=== PATIENT | female | born 1970 ===

== ENCOUNTER 2018-06-25 19:18 | Emergency (ER) | payer BC ==
[2018-06-25 19:22] VITALS: BMI 30.2
[2018-06-25 19:47] VITALS: RESP 18
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
[2018-06-25 21:42] VITALS: BP 112/65; PULSE 85; TEMP 98.7; O2SAT 100
--- NOTE | 2018-06-26 09:51 | CT ---
Date of service: 06/25/2018 PROCEDURE: CT HEAD WITHOUT CONTRAST. HISTORY: headache COMPARISON: Comparison made with CT scan brain 03/17/2013 TECHNIQUE: Axial computed tomography images were obtained through the head/brain without intravenous contrast. Radiation dose: Total exam DLP = 808.41 mGy-cm. This CT exam was performed using one or more of the following dose reduction techniques: Automated exposure control, adjustment of the mA and/or kV according to patient size, and/or use of iterative reconstruction technique. FINDINGS: HEMORRHAGE: No parenchymal, subarachnoid nor extra-axial hemorrhage. BRAIN: No mass effect or edema. No atrophy or chronic microvascular ischemic changes. VENTRICLES: There is no evidence of obstructive hydrocephalus however the ventricles are mildly dilated right larger than left. CALVARIUM: No acute calvarial fractures. PARANASAL SINUSES: Frontal sinuses are slightly underpneumatized/hypoplastic. Remaining visualized paranasal sinuses are well-developed and currently well-aerated. MASTOID AIR CELLS: Unremarkable as visualized. No inflammatory changes. OTHER FINDINGS: None. IMPRESSION: No acute intracranial hemorrhage. No hydrocephalus however the ventricles are mildly prominent right side slightly larger than left.
--- NOTE | 2018-06-26 10:04 | CT ---
Date of service: 06/25/2018 PROCEDURE: CT Cervical Spine without contrast HISTORY: neck pain COMPARISON: None available. TECHNIQUE: Axial computed tomography images were obtained of the cervical spine without the use of intravenous contrast. Coronal and sagittal reformatted images were created and reviewed. Radiation dose: Total exam DLP = 490.44 mGy-cm. This CT exam was performed using one or more of the following dose reduction techniques: Automated exposure control, adjustment of the mA and/or kV according to patient size, and/or use of iterative reconstruction technique. FINDINGS: VERTEBRAE: No acute compression fractures no retropulsed fragments.. There is slight reversal of the normal cervical lordosis which is likely due to patient positioning in the gantry however underlying element of muscle spasm may contribute. Vertebral bodies and facets otherwise normally aligned. Mild DISCS/SPINAL CANAL/NEURAL FORAMINA: Mild multilevel degenerative spondylosis. At the C6-C7 level, there is mild disc space narrowing more so along the anterior disc margin with small slightly irregular disc ridge complex focally larger on left than right which indents the ventral surface of the thecal sac and appears to minimally indent the ventral surface of the cord. The overall central canal at this level is marginal to adequate. Exit foramina adequate. At the C5-C6 level, there is also disc space narrowing. Minimal broad-based disc is present with slightly overgrown uncovertebral joints. Facets also prominent. Central canal and exit foramina adequate. Similar changes seen at the C4-C5 level. PARASPINAL SOFT TISSUES: Unremarkable. OTHER FINDINGS: None. IMPRESSION: No acute fractures. Minor multilevel degenerative spondylosis most notably affecting the C6-C7 level. Mild reversal of the normal cervical lordosis which may in part be due to patient positioning in the gantry however underlying element of muscle spasm may contribute.
== END 2018-06-25 22:30 | disposition home or self-care (01) ==
LOC: ED 19:18
DX: M54.2 Cervicalgia (principal); G62.9 Polyneuropathy, unspecified; I10 Essential (primary) hypertension; Z87.891 Personal history of nicotine dependence